=== PATIENT | female | born 1980 | race Caucasian/White ===

== ENCOUNTER 2017-05-07 11:34 | Emergency (ER) | payer BC ==
--- NOTE | 2017-05-07 12:05 | ERPHSYRPT ---
- History of Present Illness Time Seen by Provider: 05/07/17 11:57 Historian: patient Exam Limitations: no limitations Patient Subjective Stated Complaint: pt states that she began having sharp pain to the abdomen this morning. pt reports two episodes of vomiting with constant nausea. Triage Nursing Assessment: pt is aox3, pupils perrl, ambulatory to cot with no difficulties, resps are easy and non labored,skin is pwd, abd is soft and non tender with palpation, bowel sounds are present and normoactive x4, pain to the right lower quad with radiation around the flank and back. denies any frequency or dysuria. Physician History: The patient is a 36-year-old female who woke up it's morning at 8 AM with right lower quadrant pain. The pain subsided but did not disappear completely. The patient went to work. The pain became more intense. The patient has vomited twice. When the pain becomes intense, the patient begins to sweat. The patient 's past medical history is significant for a D&C, 2, and tubal ligation. She has no past medical history of kidney stones nor does anyone in her family. Timing/Duration: today Activities at Onset: none Quality: sharpness, stabbing Abdominal Pain Onset Location: RLQ Pain Radiation: flank (right) Severity of Pain-Max: severe Severity of Pain-Current: severe Modifying Factors: Improves With: vomiting Associated Symptoms: nausea, vomiting, No diarrhea Previous symptoms: no prior history Allergies/Adverse Reactions: Sulfa (Sulfonamide Antibiotics) Allergy (Verified 05/07/17 11:54) codeine Adverse Reaction (Verified 05/07/17 11:53) ibuprofen Adverse Reaction (Verified 05/07/17 11:53) Hx Tetanus, Diphtheria Vaccination/Date Given: Yes Hx Influenza Vaccination/Date Given: No Hx Pneumococcal Vaccination/Date Given: No Immunizations Up to Date: Yes - Review of Systems Constitutional: No Fever, No Chills Eyes: No Symptoms Ears, Nose, & Throat: No Symptoms Respiratory: No Cough, No Dyspnea Cardiac: No Chest Pain, No Edema, No Syncope Abdominal/Gastrointestinal: Abdominal Pain, Nausea, Vomiting, No Diarrhea Genitourinary Symptoms: No Dysuria Musculoskeletal: No Back Pain, No Neck Pain Skin: No Rash Neurological: No Dizziness, No Focal Weakness, No Sensory Changes Psychological: No Symptoms Endocrine: No Symptoms Hematologic/Lymphatic: No Symptoms Immunological/Allergic: No Symptoms All Other Systems: Reviewed and Negative - Past Medical History Pertinent Past Medical History: Yes Female Reproductive Disorders: Menstrual Problems, Other Other Medical History: tong arce - Past Surgical History Past Surgical History: Yes Female Surgical History: Dilation & Curettage, Tubal Ligation, Other Other Surgical History: endometrial ablation - Social History Smoking Status: Current every day smoker Drug Use: none Patient Lives Alone: No - Female History Hx Last Menstrual Period: 2015-ablation - Nursing Vital Signs Nursing Vital Signs: Initial Vital Signs Temperature 99.3 F Temperature Source Oral Pulse Rate 64 Respiratory Rate 18 Blood Pressure [] 121/45 Pain Intensity 3 - Physical Exam General Appearance: moderate distress Eye Exam: PERRL/EOMI, eyes nml inspection Ears, Nose, Throat Exam: normal ENT inspection, pharynx normal, moist mucous membranes Neck Exam: normal inspection, non-tender, supple, full range of motion Respiratory Exam: normal breath sounds, lungs clear, No respiratory distress Cardiovascular Exam: regular rate/rhythm, normal heart sounds Gastrointestinal/Abdomen Exam: tenderness (RLQ), guarding Pelvic Exam: not done Rectal Exam: not done Back Exam: CVA tenderness Extremity Exam: normal inspection, normal range of motion, pelvis stable Neurologic Exam: alert, oriented x 3, cooperative, normal mood/affect, nml cerebellar function, sensation nml, No motor deficits Skin Exam: normal color, warm, dry SpO2 Interpretation: normal SpO2: 97 Oxygen Delivery: Room Air - CT Exams Abdomen/Pelvis CT Interpretation: Negative (no acute findings), Tele-radiologist Report (per Dr Sandoval), Normal Appendix, No appendicitis Ordered Tests: Active Orders 24 hr Category Date Time Status IV Insertion STAT Care 05/07/17 12:07 Active ABDOMEN AND PELVIS W/0 CONTRAS [CT] Stat Exams 05/07/17 12:07 Taken CBC W DIFF Stat Lab 05/07/17 12:20 Completed CMP Stat Lab 05/07/17 12:20 Completed HCG QUALITATIVE,SERUM Stat Lab 05/07/17 12:20 Completed LIPASE Stat Lab 05/07/17 12:20 Completed Lactic Acid Stat Lab 05/07/17 12:20 Completed UA W/ MICROSCOPIC Stat Lab 05/07/17 12:15 Completed Medication Summary Generic Name Dose Route Start Last Admin Trade Name Freq PRN Reason Stop Dose Admin Ceftriaxone Sodium/Dextrose 1 g in 50 mls @ 100 mls/hr 05/07/17 13:32 13:37 Rocephin 1 Gm-D5w 50 Ml Bag IV 05/07/17 14:01 100 mls/hr STAT ONE Administration Discontinued Medications Generic Name Dose Route Start Last Admin Trade Name Husam PRN Reason Stop Dose Admin Hydromorphone HCl 2 mg 05/07/17 12:07 05/07/17 12:31 Hydromorphone 1 Mg/Ml Ampule IV 05/07/17 12:08 2 mg STAT ONE Administration Hydromorphone HCl Confirm 05/07/17 12:26 Hydromorphone 1 Mg/Ml Ampule Administered 05/07/17 12:27 Dose 2 mg .ROUTE .STK-MED ONE Sodium Chloride 1,000 mls @ 999 mls/hr 05/07/17 12:07 05/07/17 12:31 Sodium Chloride 0.9% 1000 Ml IV 05/07/17 13:07 999 mls/hr .Q1H1M STA Administration Sodium Chloride Confirm 05/07/17 12:26 Sodium Chloride 0.9% 1000 Ml Administered 05/07/17 12:27 Dose 1,000 mls @ ud .ROUTE .STK-MED ONE Ceftriaxone Sodium/Dextrose Confirm 05/07/17 13:34 Rocephin 1 Gm-D5w 50 Ml Bag Administered 05/07/17 13:35 Dose 1 g in 50 mls @ ud IV .STK-MED ONE Promethazine HCl 25 mg 05/07/17 12:07 05/07/17 12:31 Phenergan 25 Mg Inj IV 05/07/17 12:08 25 mg STAT ONE Administration Promethazine HCl Confirm 05/07/17 12:25 Phenergan 25 Mg Inj Administered 05/07/17 12:26 Dose 25 mg .ROUTE .STK-MED ONE Lab/Rad Data: Laboratory Result Diagrams 05/07/17 12:20 05/07/17 12:20 Laboratory Results 05/07/17 05/07/17 05/07/17 Range/Units 12:20 12:20 12:20 WBC (4.0-10.5) K/mm3 RBC (4.1-5.4) M/mm3 Hgb (12.0-16.0) gm/dl Hct (35-47) % MCV (78-100) fl MCH (26-32) pg MCHC (32-36) g/dl RDW (11.5-14.0) % Plt Count (150-450) K/mm3 MPV (6-9.5) fl Gran % (36.0-66.0) % Lymphocytes % (24.0-44.0) % Monocytes % (0.0-12.0) % Eosinophils % (0.00-5.0) % Basophils % (0.0-0.4) % Basophils # (0-0.4) Sodium 141 (136-145) mEq/L Potassium 3.9 (3.5-5.1) mEq/L Chloride 105 (98-107) mEq/L Carbon Dioxide 26.7 (21-32) mEq/L Anion Gap 13.1 (5-15) MEQ/L BUN 9 (9-20) mg/dL Creatinine 0.83 (0.55-1.30) mg/dl Estimated GFR > 60 ML/MIN Glucose 102 (70-110) MG/DL Lactic Acid 0.9 (0.4-2.0) Calcium 9.6 (8.5-10.1) mg/dL Total Bilirubin 0.30 (0.2-1.0) mg/dL AST 14 L (15-37) U/L ALT 25 (12-78) U/L Alkaline Phosphatase 74 (46-116) U/L Serum Total Protein 7.2 (6.4-8.2) gm/dL Albumin 3.9 (3.4-5.0) g/dL Lipase 125 (73-393) U/L Serum , Qual NEGATIVE (Negative) Ur Collection Type Urine Color (YELLOW) Urine Appearance (CLEAR) Urine pH (5-6) Ur Specific [place] (1.005-1.025) Urine Protein (Negative) Urine Ketones (NEGATIVE) Urine Blood (0-5) Moi/ul Urine Nitrite (NEGATIVE) Urine Bilirubin (NEGATIVE) Urine Urobilinogen (0-1) mg/dL Ur Leukocyte Esterase (NEGATIVE) Urine Microscopic WBC (0-5) /HPF Ur Epithelial Cells (FEW) /HPF Urine Bacteria (NEGATIVE) /HPF Urine Glucose (NEGATIVE) mg/dL Specimen Received 05/07/17 05/07/17 Range/Units 12:20 12:15 WBC 7.3 (4.0-10.5) K/mm3 RBC 4.71 (4.1-5.4) M/mm3 Hgb 14.8 (12.0-16.0) gm/dl Hct 43.9 (35-47) % MCV 93.2 (78-100) fl MCH 31.4 (26-32) pg MCHC 33.7 (32-36) g/dl RDW 12.4 (11.5-14.0) % Plt Count 306 (150-450) K/mm3 MPV 11.1 H (6-9.5) fl Gran % 64.5 (36.0-66.0) % Lymphocytes % 27.9 (24.0-44.0) % Monocytes % 5.6 (0.0-12.0) % Eosinophils % 1.6 (0.00-5.0) % Basophils % 0.4 (0.0-0.4) % Basophils # 0.03 (0-0.4) Sodium (136-145) mEq/L Potassium (3.5-5.1) mEq/L Chloride (98-107) mEq/L Carbon Dioxide (21-32) mEq/L Anion Gap (5-15) MEQ/L BUN (9-20) mg/dL Creatinine (0.55-1.30) mg/dl Estimated GFR ML/MIN Glucose (70-110) MG/DL Lactic Acid (0.4-2.0) Calcium (8.5-10.1) mg/dL Total Bilirubin (0.2-1.0) mg/dL AST (15-37) U/L ALT (12-78) U/L Alkaline Phosphatase (46-116) U/L Serum Total Protein (6.4-8.2) gm/dL Albumin (3.4-5.0) g/dL Lipase (73-393) U/L Serum , Qual (Negative) Ur Collection Type CCMS Urine Color YELLOW (YELLOW) Urine Appearance SLIGHTLY CLOUDY (CLEAR) Urine pH 6.0 (5-6) Ur Specific [place] 1.005 (1.005-1.025) Urine Protein NEGATIVE (Negative) Urine Ketones NEGATIVE (NEGATIVE) Urine Blood NEGATIVE (0-5) Moi/ul Urine Nitrite NEGATIVE (NEGATIVE) Urine Bilirubin NEGATIVE (NEGATIVE) Urine Urobilinogen NORMAL (0-1) mg/dL Ur Leukocyte Esterase 2+ (NEGATIVE) Urine Microscopic WBC 5-10 (0-5) /HPF Ur Epithelial Cells FEW (FEW) /HPF Urine Bacteria MODERATE (NEGATIVE) /HPF Urine Glucose NEGATIVE (NEGATIVE) mg/dL Specimen Received 05/07/17 1215 - Progress Progress: improved Progress Note: 05/07/17 13:48 The patient's white count is normal, as is the serum chemistry is normal. The CT of the abdomen and pelvis is normal. The only abnormality found is that of white cells and moderate bacteria in the urine. I discussed this with the patient. The patient was given Rocephin for UTI. Counseled pt/family regarding: lab results, diagnosis, need for follow-up, rad results - Departure Time of Disposition: 13:49 Departure Disposition: Home Clinical Impression: Abdominal pain, UTI (urinary tract infection) Condition: Stable Critical Care Time: No Additional Instructions: You have abdominal pain and a UTI. You were given Dilaudid, Phenergan, Rocephin , and IV fluids in the ER. Take ciprofloxacin 500 mg twice a day for 7 days. Take Zofran 4 mg ODT every 6 hours as needed for nausea and vomiting. Take Tylenol as needed for pain. Follow-up on Tuesday. Prescriptions: Ondansetron [Zofran Odt] 4 mg PO Q6HPRN PRN #10 tab.rapdis PRN Reason: Nausea/Vomiting Ciprofloxacin [Cipro 500 MG] 1 tab PO BID #14 tablet
[2017-05-07] MEDS ORDERED: Sodium Chloride 0.9% 1000 ML 1,000 ML IV STA (12:07)
[2017-05-07] MEDS ORDERED: Phenergan 25 MG INJ IV ONE (12:07)
[2017-05-07] MEDS ORDERED: Hydromorphone 1 mg/ml Ampule IV ONE (12:07)
[2017-05-07 12:18] LABS: Bilirubin NEGATIVE (NEGATIVE); Collection Type CCMS; Glucose NEGATIVE (NEGATIVE); Leukocyte Esterase 2+ (NEGATIVE)
[2017-05-07 12:19] LABS: ADD URINE CULTURE? NO (NO); Blood NEGATIVE Ery/ul (0-5); COMPLETE URINE MICROSCOPIC? YES
[2017-05-07] MEDS ORDERED: Phenergan 25 MG INJ ONE (12:25)
[2017-05-07] MEDS ORDERED: Sodium Chloride 0.9% 1000 ML 1,000 ML ONE (12:26)
[2017-05-07] MEDS ORDERED: Hydromorphone 1 mg/ml Ampule ONE (12:26)
[2017-05-07 12:33] LABS: BASOPHIL % 0.4 % (0.0-0.4); Eosinophil % 1.6 % (0.00-5.0); Granulocytes % 64.5 % (36.0-66.0); Lymphocytes % 27.9 % (24.0-44.0); Mean Cell Volume 93.2 fl (78-100); Mean Corpuscular Hemoglobin 31.4 pg (26-32); Mean Platelet Volume 11.1 fl (6-9.5); Monocytes % 5.6 % (0.0-12.0); Platelet Count 306 K/mm3 (150-450); Red Blood Count 4.71 M/mm3 (4.1-5.4); Red Cell Distribution Width 12.4 % (11.5-14.0); White Blood Count 7.3 K/mm3 (4.0-10.5)
[2017-05-07 12:45] LABS: ALBUMIN 3.9 g/dL (3.4-5.0); ALKALINE PHOSPHATASE 74 U/L (46-116); ANION GAP 13.1 MEQ/L (5-15); BLOOD UREA NITROGEN 9 mg/dL (9-20); CHLORIDE 105 mEq/L (98-107); Carbon Dioxide 26.7 mEq/L (21-32); Glucose 102 MG/DL (70-110); LIPASE 125 U/L (73-393); Potassium 3.9 mEq/L (3.5-5.1); SGOT/AST 14 U/L (15-37); SGPT/ALT 25 U/L (12-78); SODIUM 141 mEq/L (136-145); Total Protein 7.2 gm/dL (6.4-8.2)
[2017-05-07 12:52] LABS: Bacteria MODERATE /HPF (NEGATIVE); Epithelial Cells FEW /HPF (FEW)
[2017-05-07] MEDS ORDERED: ROCEPHIN 1 Gm-D5w 50 ml Bag** 1 G/50 ML IVPB IV ONE ×2 (13:32→13:34)
[2017-05-07 14:21] VITALS: BP 106/74; PULSE 60; O2SAT 100
--- NOTE | 2017-05-07 21:49 | XRAY ---
Indication: Right lower quadrant pain, nausea, and vomiting. Multiple contiguous axial images obtained through the abdomen and pelvis without contrast as ordered. Comparison: None Lung bases demonstrates mild bibasilar dependent atelectasis. Heart is not enlarged. Noncontrasted stomach and bowel loops appear nonobstructed. Normal appendix. There is mild diffuse scattered colonic fecal debris. No free fluid/air. A few calcified splenic granulomas. Remaining liver, gallbladder, pancreas, spleen, adrenal glands, kidneys, ureters, bladder, uterus, and aorta appear unremarkable for noncontrast exam. Osseous structures intact. Impression: Mild fecal stasis without obstruction. No acute intra-abdominal/pelvic abnormalities on this noncontrast exam. Comment: Preliminary interpretation was made by [facility]. No critical discrepancy. CTDI 20.73
== END 2017-05-07 14:20 | disposition home or self-care (01) ==
LOC: ED 11:34
DX: R10.9 Unspecified abdominal pain (principal); N39.0 Urinary tract infection, site not specified; R11.2 Nausea with vomiting, unspecified; R10.31 Right lower quadrant pain
CPT/HCPCS: 36000; 36415; 74176; 80053; 81000; 83605; 83690; 84703; 85025; 96360; 96365; 96374; 96375; 99284; J0696; J1170; J2550

== ENCOUNTER 2017-07-03 11:22 | Emergency (ER) | payer BC ==
[2017-07-03 11:32] VITALS: O2SAT 99
[2017-07-03] MEDS ORDERED: Phenergan 25 MG INJ IM ONE (11:49)
[2017-07-03] MEDS ORDERED: TORAdol 30 mg Injection IM ONE (11:49)
[2017-07-03] MEDS ORDERED: Zofran 4 MG/2 ML VIAL IV ONE (11:55)
[2017-07-03] MEDS ORDERED: TORAdol 30 mg Injection IV ONE (11:55)
[2017-07-03] MEDS ORDERED: Sodium Chloride 0.9% 1000 ML 1,000 ML IV STA (11:56)
[2017-07-03 11:57] LABS: Mean Cell Volume 94.1 fl (78-100); Mean Corpuscular Hemoglobin 31.4 pg (26-32); Mean Platelet Volume 11.6 fl (6-9.5); Platelet Count 321 K/mm3 (150-450); Red Blood Count 4.55 M/mm3 (4.1-5.4); White Blood Count 9.8 K/mm3 (4.0-10.5)
[2017-07-03] MEDS ORDERED: Sodium Chloride 0.9% 1000 ML 1,000 ML ONE (11:59)
[2017-07-03] MEDS ORDERED: TORAdol 30 mg Injection ONE (11:59)
[2017-07-03] MEDS ORDERED: Zofran 4 MG/2 ML VIAL ONE (11:59)
[2017-07-03 12:04] LABS: ADD URINE CULTURE? YES (NO); Bacteria FEW /HPF (NEGATIVE); Bilirubin NEGATIVE (NEGATIVE); Blood NEGATIVE Ery/ul (0-5); COMPLETE URINE MICROSCOPIC? YES; Collection Type VOID; Epithelial Cells MODERATE /HPF (FEW); Glucose NEGATIVE (NEGATIVE); Leukocyte Esterase 1+ (NEGATIVE)
--- NOTE | 2017-07-03 12:15 | ERPHSYRPT ---
- History of Present Illness Time Seen by Provider: 07/03/17 12:11 Historian: patient Exam Limitations: no limitations Patient Subjective Stated Complaint: PT REPORTS LOW RIGHT ABD PAIN BEGINNING MONTHS AGO-HAS BEEN TX WITH TESTS ORDERED-STATES THAT PAIN HAS NOT CHANGED ET CONTINUES TODAY-DENIES N/V/D Triage Nursing Assessment: PT PINK WARM ET [id number] EASY ET NONLABORED- ABD NONTENDER TO PALP-DENIES DIFFICULTY WITH URINATION OR BOWELS Physician History: 36-year-old female came to the emergency room with 2 month history of abdominal pain on the right lower quadrant and around the right periumbilical area. Patient was seen in the emergency room here on May [address] abdomen was appears to be unremarkable. Patient's other blood tests are also unremarkable and at that time. Patient urine was showing some infection, so patient was treated for urinary tract infection. Patient continues to have a pain so she went to see her nurse practitioner who ordered a renal ultrasound and according to the patient. It was reported negative. Patient has a history of endometriosis for which patient underwent an lesions few years ago and since did not have any problems since then. Patient denies any fever, chills, nausea , vomiting or diarrhea. Her pain is soft stabbing and as stated goes right usually get worse, although it does not affect her sleep. Timing/Duration: week(s), intermittent Activities at Onset: none Quality: sharpness, stabbing Abdominal Pain Onset Location: RLQ, periumbilical Pain Radiation: flank Severity of Pain-Max: moderate Severity of Pain-Current: moderate Modifying Factors: Improves With: nothing Associated Symptoms: denies symptoms Allergies/Adverse Reactions: Sulfa (Sulfonamide Antibiotics) Allergy (Verified 07/03/17 11:28) codeine Adverse Reaction (Verified 07/03/17 11:28) ibuprofen Adverse Reaction (Verified 07/03/17 11:28) Hx Tetanus, Diphtheria Vaccination/Date Given: Yes Hx Influenza Vaccination/Date Given: No Hx Pneumococcal Vaccination/Date Given: No Immunizations Up to Date: Yes - Review of Systems Constitutional: No Fever, No Chills Eyes: No Symptoms Ears, Nose, & Throat: No Symptoms Respiratory: No Cough, No Dyspnea Cardiac: No Chest Pain, No Edema, No Syncope Abdominal/Gastrointestinal: Abdominal Pain, No Nausea, No Vomiting, No Diarrhea Genitourinary Symptoms: No Dysuria Musculoskeletal: No Back Pain, No Neck Pain Skin: No Rash Neurological: No Dizziness, No Focal Weakness, No Sensory Changes Psychological: No Symptoms Endocrine: No Symptoms All Other Systems: Reviewed and Negative - Past Medical History Pertinent Past Medical History: Yes Female Reproductive Disorders: Menstrual Problems, Other Other Medical History: tong arce - Past Surgical History Past Surgical History: Yes Female Surgical History: Dilation & Curettage, Tubal Ligation, Other Other Surgical History: endometrial ablation - Social History Smoking Status: Current every day smoker How long have you smoked: YRS Exposure to second hand smoke: Yes Drug Use: none Patient Lives Alone: No - Female History Hx Last Menstrual Period: ABLASION - Nursing Vital Signs Nursing Vital Signs: Initial Vital Signs Temperature 97.8 F 07/03/17 11:29 Pulse Rate 85 07/03/17 11:29 Respiratory Rate 20 07/03/17 11:29 Blood Pressure 122/83 07/03/17 11:29 O2 Sat by Pulse Oximetry 99 07/03/17 11:29 Pain Scale Pain Intensity 7 - Physical Exam General Appearance: no apparent distress, alert Eye Exam: PERRL/EOMI, eyes nml inspection Ears, Nose, Throat Exam: normal ENT inspection, pharynx normal, moist mucous membranes Neck Exam: normal inspection, non-tender, supple, full range of motion Respiratory Exam: normal breath sounds, lungs clear, No respiratory distress Cardiovascular Exam: regular rate/rhythm, normal heart sounds Gastrointestinal/Abdomen Exam: soft, tenderness (periumbilical area and right lower quadrant. ), No mass, No guarding, No rebound Pelvic Exam: not done Rectal Exam: deferred Back Exam: normal inspection, normal range of motion, No CVA tenderness, No vertebral tenderness Extremity Exam: normal inspection, normal range of motion, pelvis stable Neurologic Exam: alert, oriented x 3, cooperative, normal mood/affect, nml cerebellar function, sensation nml, No motor deficits Skin Exam: normal color, warm, dry SpO2: 99 Oxygen Delivery: Room Air - Course Nursing assessment & vital signs reviewed: Yes Ordered Tests: Active Orders 24 hr Category Date Time Status Clean Catch Urine Specimen STAT Care 07/03/17 11:33 Active IV Insertion STAT Care 07/03/17 11:33 Active AMYLASE Stat Lab 07/03/17 12:06 Completed CBC W DIFF Stat Lab 07/03/17 11:30 Completed CMP Stat Lab 07/03/17 12:06 Completed CULTURE,URINE Stat Lab 07/03/17 11:35 Received HCG QUALITATIVE,SERUM Stat Lab 07/03/17 12:06 Completed LIPASE Stat Lab 07/03/17 12:06 Completed Manual Differential NC Stat Lab 07/03/17 11:30 Completed UA W/ MICROSCOPIC Stat Lab 07/03/17 11:35 Completed Urine Triage Profile Stat Lab 07/03/17 11:49 Completed Medication Summary Generic Name Dose Route Start Last Admin Trade Name Freq PRN Reason Stop Dose Admin Sodium Chloride 1,000 mls @ 999 mls/hr 07/03/17 11:56 07/03/17 12:03 Sodium Chloride 0.9% 1000 Ml IV 07/03/17 12:56 999 mls/hr .Q1H1M STA Administration Discontinued Medications Generic Name Dose Route Start Last Admin Trade Name Freq PRN Reason Stop Dose Admin Sodium Chloride Confirm 07/03/17 11:59 Sodium Chloride 0.9% 1000 Ml Administered 07/03/17 12:00 Dose 1,000 mls @ ud .ROUTE .STK-MED ONE Ceftriaxone Sodium/Dextrose 1 g in 50 mls @ 100 mls/hr 07/03/17 12:17 12:19 Rocephin 1 Gm-D5w 50 Ml Bag IV 07/03/17 12:46 100 mls/hr STAT STA Administration Ceftriaxone Sodium/Dextrose Confirm 07/03/17 12:20 Rocephin 1 Gm-D5w 50 Ml Bag Administered 07/03/17 12:21 Dose 1 g in 50 mls @ ud IV .STK-MED ONE Ketorolac Tromethamine 30 mg 07/03/17 11:49 07/03/17 11:59 Toradol 30 Mg Injection IM 07/03/17 11:50 Not Given STAT ONE Ketorolac Tromethamine 30 mg 07/03/17 11:55 07/03/17 12:04 Toradol 30 Mg Injection IV 07/03/17 11:56 30 mg STAT ONE Administration Ketorolac Tromethamine Confirm 07/03/17 11:59 Toradol 30 Mg Injection Administered 07/03/17 12:00 Dose 30 mg .ROUTE .STK-MED ONE Ondansetron HCl 4 mg 07/03/17 11:55 07/03/17 12:04 Zofran 4 Mg/2 Ml Vial IV 07/03/17 11:56 4 mg STAT ONE Administration Ondansetron HCl Confirm 07/03/17 11:59 Zofran 4 Mg/2 Ml Vial Administered 07/03/17 12:00 Dose 4 mg .ROUTE .STK-MED ONE Promethazine HCl 25 mg 07/03/17 11:49 07/03/17 11:54 Phenergan 25 Mg Inj IM 07/03/17 11:50 Not Given STAT ONE Lab/Rad Data: Laboratory Result Diagrams 07/03/17 11:30 07/03/17 12:06 Laboratory Results 07/03/17 07/03/17 07/03/17 Range/Units 12:06 12:06 11:49 WBC (4.0-10.5) K/mm3 RBC (4.1-5.4) M/mm3 Hgb (12.0-16.0) gm/dl Hct (35-47) % MCV (78-100) fl MCH (26-32) pg MCHC (32-36) g/dl RDW (11.5-14.0) % Plt Count (150-450) K/mm3 MPV (6-9.5) fl Sodium 141 (136-145) mEq/L Potassium 3.7 (3.5-5.1) mEq/L Chloride 106 (98-107) mEq/L Carbon Dioxide 25.2 (21-32) mEq/L Anion Gap 13.5 (5-15) MEQ/L BUN 12 (9-20) mg/dL Creatinine 0.84 (0.55-1.30) mg/dl Estimated GFR > 60 ML/MIN Glucose 90 (70-110) MG/DL Calcium 9.4 (8.5-10.1) mg/dL Total Bilirubin 0.20 (0.2-1.0) mg/dL AST 16 (15-37) U/L ALT 34 (12-78) U/L Alkaline Phosphatase 84 (46-116) U/L Serum Total Protein 7.2 (6.4-8.2) gm/dL Albumin 3.8 (3.4-5.0) g/dL Amylase 56 (25-115) U/L Lipase 111 (73-393) U/L Serum , Qual NEGATIVE (Negative) Ur Collection Type Urine Color (YELLOW) Urine Appearance (CLEAR) Urine pH (5-6) Ur Specific Hart (1.005-1.025) Urine Protein (Negative) Urine Ketones (NEGATIVE) Urine Blood (0-5) Moi/ul Urine Nitrite (NEGATIVE) Urine Bilirubin (NEGATIVE) Urine Urobilinogen (0-1) mg/dL Ur Leukocyte Esterase (NEGATIVE) Urine Microscopic RBC Urine Microscopic WBC (0-5) /HPF Ur Epithelial Cells (FEW) /HPF Urine Crystals Calcium Oxalate Crystal Uric Acid Crystals Triple Phos Crystals Amorphous Crystals Other Sediment Urine Bacteria (NEGATIVE) /HPF Urine Casts Hyaline Casts Granular Casts RBC Casts WBC Casts Urine Mucus Urine Trichomonas Urine Yeast Urine Sperm Urine Glucose (NEGATIVE) mg/dL Urine Opiates Level NEG. (NEGATIVE) Ur Methadone NEG. (NEGATIVE) Urine Barbiturates NEG. (NEGATIVE) Ur Phencyclidine (PCP) NEG. (NEGATIVE) Urine Amphetamine NEG. (NEGATIVE) U Benzodiazepine Level NEG. (NEGATIVE) Urine Cocaine NEG. (NEGATIVE) Urine Marijuana (THC) NEG. (NEGATIVE) Specimen Received 07/03/17 07/03/17 07/03/17 Range/Units 11:40 11:35 11:30 WBC 9.8 (4.0-10.5) K/mm3 RBC 4.55 (4.1-5.4) M/mm3 Hgb 14.3 (12.0-16.0) gm/dl Hct 42.8 (35-47) % MCV 94.1 (78-100) fl MCH 31.4 (26-32) pg MCHC 33.4 (32-36) g/dl RDW 13.0 (11.5-14.0) % Plt Count 321 (150-450) K/mm3 MPV 11.6 H (6-9.5) fl Sodium (136-145) mEq/L Potassium (3.5-5.1) mEq/L Chloride (98-107) mEq/L Carbon Dioxide (21-32) mEq/L Anion Gap (5-15) MEQ/L BUN (9-20) mg/dL Creatinine (0.55-1.30) mg/dl Estimated GFR ML/MIN Glucose (70-110) MG/DL Calcium (8.5-10.1) mg/dL Total Bilirubin (0.2-1.0) mg/dL AST (15-37) U/L ALT (12-78) U/L Alkaline Phosphatase (46-116) U/L Serum Total Protein (6.4-8.2) gm/dL Albumin (3.4-5.0) g/dL Amylase (25-115) U/L Lipase (73-393) U/L Serum , Qual (Negative) Ur Collection Type Cancelled VOID Urine Color Cancelled YELLOW (YELLOW) Urine Appearance Cancelled HAZY (CLEAR) Urine pH Cancelled 6.0 (5-6) Ur Specific Hart Cancelled 1.0005 (1.005-1.025) Urine Protein Cancelled NEGATIVE (Negative) Urine Ketones Cancelled NEGATIVE (NEGATIVE) Urine Blood Cancelled NEGATIVE (0-5) Moi/ul Urine Nitrite Cancelled NEGATIVE (NEGATIVE) Urine Bilirubin Cancelled NEGATIVE (NEGATIVE) Urine Urobilinogen Cancelled NORMAL (0-1) mg/dL Ur Leukocyte Esterase Cancelled 1+ (NEGATIVE) Urine Microscopic RBC Cancelled Urine Microscopic WBC Cancelled 2-5 (0-5) /HPF Ur Epithelial Cells Cancelled MODERATE (FEW) /HPF Urine Crystals Cancelled Calcium Oxalate Crystal Cancelled Uric Acid Crystals Cancelled Triple Phos Crystals Cancelled Amorphous Crystals Cancelled Other Sediment Cancelled Urine Bacteria Cancelled FEW (NEGATIVE) /HPF Urine Casts Cancelled Hyaline Casts Cancelled Granular Casts Cancelled RBC Casts Cancelled WBC Casts Cancelled Urine Mucus Cancelled Urine Trichomonas Cancelled Urine Yeast Cancelled Urine Sperm Cancelled Urine Glucose Cancelled NEGATIVE (NEGATIVE) mg/dL Urine Opiates Level (NEGATIVE) Ur Methadone (NEGATIVE) Urine Barbiturates (NEGATIVE) Ur Phencyclidine (PCP) (NEGATIVE) Urine Amphetamine (NEGATIVE) U Benzodiazepine Level (NEGATIVE) Urine Cocaine (NEGATIVE) Urine Marijuana (THC) (NEGATIVE) Specimen Received Cancelled 1140 - Progress Progress: improved, pain not gone completely Progress Note: 07/03/17 12:53 Lab results discussed with the patient. Patient urine is positive for Glucotrol and esterase, which is suggestive of lower urinary tract infection. Rocephin 1 g intravenously 1 dose given. Patient is instructed to take oral antibiotic for 7 more days and follow-up with her nurse practitioner for further evaluation by urologist and OB and dog daycare provider. Counseled pt/family regarding: lab results, diagnosis, need for follow-up - Departure Time of Disposition: 12:57 Departure Disposition: Home Clinical Impression: Abdominal pain Qualifiers: Abdominal location: right lower quadrant Qualified Code(s): R10.31 - Right lower quadrant pain UTI (urinary tract infection) Qualifiers: Urinary tract infection type: acute cystitis Hematuria presence: without hematuria Qualified Code(s): N30.00 - Acute cystitis without hematuria Condition: Stable Critical Care Time: No Referrals: Provider,Unknown [Primary Care Provider] - Instructions: Abdominal Pain-Adult, Urinary Tract Infection (UTI) Additional Instructions: ABDOMINAL PAIN 1. There are several different causes for abdominal pain, some of which may not be able to be identified on initial examination. 2. The important thing to remember is that bodily functions can change in a short period of time. If you notice any of the following symptoms, return to the emergency department or consult your doctor immediately: A. Worsening pain or no improvement in the next 12 hours. B. Increasing, severe abdominal pain C. Blood in stool D. Black stools E. Persistent vomiting F. Fever or chills or other symptoms URINARY TRACT INFECTION 1. You will need to drink plenty of fluids in order to keep your urinary system flushed. These fluids should mainly consist of water and juices. 2. Take medications as directed. You need to completely finish any antiobiotic prescription given. 3. Try to avoid coffee, tea, alcohol, and seasoned foods as they may cause bladder irritation. 4. If signs and symptoms persist after 3-4 days, you will need to follow up with your family physician. 5. Female Patients: A. Avoid intercourse for 3-4 days. B. Empty bladder before and after intercourse to reduce risk of re- infection. C. After emptying bladder, wipe from front to back to reduce the risk of re- infection. Please follow the instructions given to you. Please take your medication as prescribed if given. If symptoms recur or get worse, come back to the emergency room if you cannot reach your primary care physician, or call your primary care physician for an appointment. Again if your symptoms get worse, come back to the emergency room. Thanks for visiting emergency room, and let us take care of you. Prescriptions: Ciprofloxacin [Cipro 500 MG] 500 mg PO BIDAC #20 tablet Cyclobenzaprine HCl 10 mg PO TID #30 tablet
[2017-07-03] MEDS ORDERED: ROCEPHIN 1 Gm-D5w 50 ml Bag** 1 G/50 ML IVPB IV STA (12:17)
[2017-07-03] MEDS ORDERED: ROCEPHIN 1 Gm-D5w 50 ml Bag** 1 G/50 ML IVPB IV ONE (12:20)
[2017-07-03 12:28] LABS: ALBUMIN 3.8 g/dL (3.4-5.0); ALKALINE PHOSPHATASE 84 U/L (46-116); ANION GAP 13.5 MEQ/L (5-15); BLOOD UREA NITROGEN 12 mg/dL (9-20); CHLORIDE 106 mEq/L (98-107); Carbon Dioxide 25.2 mEq/L (21-32); Glucose 90 MG/DL (70-110); LIPASE 111 U/L (73-393); Potassium 3.7 mEq/L (3.5-5.1); SGOT/AST 16 U/L (15-37); SGPT/ALT 34 U/L (12-78); SODIUM 141 mEq/L (136-145); Total Protein 7.2 gm/dL (6.4-8.2)
[2017-07-03 13:08] VITALS: BP 123/80; PULSE 80
[2017-07-03 14:45] LABS: Eosinophil 1 % (0.00-3.0); Total Cells Counted 100
[2017-07-03 14:46] LABS: Platelet Estimate NORMAL (NORMAL)
== END 2017-07-03 13:13 | disposition home or self-care (01) ==
LOC: ED 11:22
DX: R10.31 Right lower quadrant pain (principal); N30.00 Acute cystitis without hematuria
CPT/HCPCS: 36000; 36415; 80053; 80307; 81000; 82150; 83690; 84703; 85025; 87086; 96360; 96361; 96365; 96374; 96375; 99284; J0696; J1885; J2405